=== PATIENT | female | born 1990 | race African-American/Black ===

== ENCOUNTER 2018-11-22 10:48 | Emergency (ER) | payer SELFPAY ==
[2018-11-22] MEDS ORDERED: ASPIRIN 81 MG TABLET, CHEWABLE PO ONE (12:10)
--- NOTE | 2018-11-22 12:10 | ER Document Report ---
ED Medical Screen (RME) - General Chief Complaint: Shortness Of Breath Stated Complaint: SHORTNESS OF BREATH Time Seen by Provider: 11/22/18 12:06 Mode of Arrival: Ambulatory Information source: Patient Notes: 28-year-old female presented to ED for complaint of shortness of breath since about 3:00 this morning. She states she woke up because she needed to go to the bathroom she states that she was more when she could not catch her breath because of shortness of breath. She states when she finished going to the bathroom and went to lay down she tried to lay down and had very sharp chest pains. She states when she lays on her side her back it hurts when she sits up it feels better. She states she does not have any history of asthma bronchitis or pneumonia. She denies any cardiac history. She states she has never felt like this before. She states she does not smoke she drinks maybe every 2 to 3months and does not use any illicit drugs. She states she was sent over here from urgent care to get a chest pain work-up. Her lungs are clear to auscultation at this time. I have greeted and performed a rapid initial assessment of this patient. A comprehensive ED assessment and evaluation of the patient, analysis of test results and completion of medical decision making process will be conducted by an additional ED providers. - Related Data Allergies/Adverse Reactions: No Known Allergies Allergy (Verified 11/22/18 10:49) Physical Exam - Vital signs Vitals: Temp Pulse Resp BP Pulse Ox 98.6 F 65 18 124/79 100 11/22/18 11:07 11/22/18 11:07 11/22/18 11:07 11/22/18 11:07 11/22/18 11:07 Course - Vital Signs Vital signs: Temp Pulse Resp BP Pulse Ox 98.6 F 65 18 124/79 100 11/22/18 11:07 11/22/18 11:07 11/22/18 11:07 11/22/18 11:07 11/22/18 11:07
[2018-11-22 13:50] LABS: ABSOLUTE LYMPHOCYTES (AUTO) 1.6 10^3/uL (0.5-4.7); ABSOLUTE MONOCYTES (AUTO) 0.3 10^3/uL (0.1-1.4); ABSOLUTE NEUT (AUTO) 3.3 10^3/uL (1.7-8.2); BASOPHILS % (AUTO) 0.5 % (0-2); EOSINOPHILS % (AUTO) 0.4 % (0-6); HEMATOCRIT 35.9 % (36.0-47.0); HEMOGLOBIN 11.8 g/dL (12.0-15.5); LYMPHOCYTES % (AUTO) 30.1 % (13-45); MEAN CORPUSCULAR HEMOGLOBIN 30.1 pg (27.0-33.4); MEAN CORPUSCULAR HGB CONC 32.9 g/dL (32.0-36.0); MEAN CORPUSCULAR VOLUME 92 fl (80-97); MONOCYTES % (AUTO) 6.4 % (3-13); PLATELET COUNT 281 10^3/uL (150-450); RED BLOOD COUNT 3.93 10^6/uL (3.72-5.28); RED CELL DISTRIBUTION WIDTH 15.6 % (11.5-14.0); SEGMENTED NEUTROPHILS % (AUTO) 62.6 % (42-78); TOTAL CELLS COUNTED % (AUTO) 100 %; WHITE BLOOD COUNT 5.3 10^3/uL (4.0-10.5)
--- NOTE | 2018-11-22 13:55 | ER Document Report ---
ED General - General Chief Complaint: Shortness Of Breath Stated Complaint: SHORTNESS OF BREATH Time Seen by Provider: 11/22/18 12:06 Mode of Arrival: Ambulatory - HPI Notes: 28 y/o presenting to ED for evaluation of anterior chest pain that started yesterday no fever, cough, vomiting, nausea, sweats no h/o dvt or pe no rashes she does tell me the pain is worse w/ pressing on her chest she states she woke up with the discomfort and it has been on/off since waking so she presented to the ED - Related Data Allergies/Adverse Reactions: No Known Allergies Allergy (Verified 11/22/18 10:49) Past Medical History - General Information source: Patient - Social History Smoking Status: Never Smoker Family History: Reviewed & Not Pertinent Patient has suicidal ideation: No Patient has homicidal ideation: No Review of Systems - Review of Systems Constitutional: No symptoms reported EENT: No symptoms reported Cardiovascular: Chest pain Respiratory: No symptoms reported Gastrointestinal: No symptoms reported Genitourinary: No symptoms reported Female Genitourinary: No symptoms reported Musculoskeletal: No symptoms reported Skin: No symptoms reported Hematologic/Lymphatic: No symptoms reported Neurological/Psychological: No symptoms reported Physical Exam - Vital signs Vitals: Temp Pulse Resp BP Pulse Ox 98.6 F 65 18 124/79 100 11/22/18 11:07 11/22/18 11:07 11/22/18 11:07 11/22/18 11:07 11/22/18 11:07 Interpretation: Normal - General General appearance: Appears well, Alert - HEENT Head: Normocephalic, Atraumatic Eyes: Normal Pupils: PERRL - Respiratory Respiratory status: No respiratory distress Chest status: Nontender Breath sounds: Normal Chest palpation: Normal - Cardiovascular Rhythm: Regular Heart sounds: Normal auscultation Murmur: No Notes: anterior chest tenderness to palpation - Abdominal Inspection: Normal Distension: No distension Bowel sounds: Normal Tenderness: Nontender Organomegaly: No organomegaly - Back Back: Normal, Nontender - Extremities General upper extremity: Normal inspection, Nontender, Normal color, Normal ROM, Normal temperature General lower extremity: Normal inspection, Nontender, Normal color, Normal ROM, Normal temperature, Normal weight bearing. No: Germaine's sign - Neurological Neuro grossly intact: Yes Cognition: Normal Orientation: AAOx4 [place] Coma Scale Eye Opening: Spontaneous [place] Coma Scale Verbal: Oriented [place] Coma Scale Motor: Obeys Commands [place] Coma Scale Total: 15 Speech: Normal Motor strength normal: LUE, RUE, LLE, RLE Sensory: Normal - Psychological Associated symptoms: Normal affect, Normal mood - Skin Skin Temperature: Warm Skin Moisture: Dry Skin Color: Normal Course - Re-evaluation Re-evalutation: 11/22/18 15:08 ekg normal cxr clear labs reassuring perc neg pe dc w/ pcp follow up as outpt heart score 0 - Vital Signs Vital signs: Temp Pulse Resp BP Pulse Ox 98.6 F 65 18 124/79 100 11/22/18 11:07 11/22/18 11:07 11/22/18 11:07 11/22/18 11:07 11/22/18 12:36 - Laboratory Result Diagrams: 11/22/18 13:28 11/22/18 13:28 Laboratory results interpreted by me: 11/22/18 13:28 Hgb 11.8 L Hct 35.9 L RDW 15.6 H - Diagnostic Test Radiology reviewed: Reports reviewed - EKG Interpretation by Me Additional EKG results interpreted by me: 11/22/18 15:08 NSR, rate of 80, no ST changes Discharge - Discharge Clinical Impression: Chest pain Qualifiers: Chest pain type: unspecified Qualified Code(s): R07.9 - Chest pain, unspecified Condition: Stable Disposition: HOME, SELF-CARE Instructions: Chest Pain of Unclear Cause ([facility]) Additional Instructions: follow up with primary doctor as an outpatient return to the ED with worsening
[2018-11-22 14:08] LABS: ALBUMIN 4.4 g/dL (3.5-5.0); ALKALINE PHOSPHATASE 42 U/L (38-126); ANION GAP 9 (5-19); ASPARTATE AMINO TRANSFERASE 29 U/L (14-36); BILIRUBIN,DIRECT 0.2 mg/dL (0.0-0.4); BILIRUBIN,TOTAL 0.7 mg/dL (0.2-1.3); BLOOD UREA NITROGEN 7 mg/dL (7-20); CALCIUM 9.1 mg/dL (8.4-10.2); CARBON DIOXIDE 27 mmol/L (22-30); CHLORIDE 101 mmol/L (98-107); CREATINE KINASE 125 U/L (30-135); GLUCOSE 82 mg/dL (75-110); TOTAL PROTEIN 7.5 g/dL (6.3-8.2)
[2018-11-22 14:18] LABS: CREATINE KINASE MB 0.22 ng/mL (<4.55); NT PRO BNP 53 pg/mL (<125); TROPONIN I < 0.012 ng/mL
--- NOTE | 2018-11-22 14:59 | RADIOLOGY REPORT (SQ) ---
EXAM DESCRIPTION: CHEST SINGLE VIEW COMPLETED DATE/TIME: 11/22/2018 2:38 pm REASON FOR STUDY: chest pain COMPARISON: None. EXAM PARAMETERS: NUMBER OF VIEWS: One view. TECHNIQUE: Single frontal radiographic view of the chest acquired. RADIATION DOSE: NA LIMITATIONS: None. FINDINGS: The cardiomediastinal silhouette and pulmonary vasculature are within normal limits. Ther e is no consolidation, pleural effusion or pneumothorax. There is no acute abnormality of the imaged osseous structures. IMPRESSION: No acute cardiopulmonary process. TECHNICAL DOCUMENTATION: JOB ID: [id number] [employer]- All Rights Reserved Reading location - IP/workstation name: [email or web address]
[2018-11-22 15:30] VITALS: BP 131/88
--- NOTE | 2018-11-22 23:09 | EKG REPORT ---
SEVERITY:- NORMAL ECG - SINUS RHYTHM : Confirmed by: Dominique Ibrahim MD 22-Nov-2018 23:08:58
== END 2018-11-22 15:30 | disposition home or self-care (01) ==
LOC: ER 10:48
DX: R07.9 Chest pain, unspecified (principal)
CPT/HCPCS: 36415; 71045; 80053; 82550; 82553; 83880; 84443; 84484; 85025; 93005; 93010; 99285